=== PATIENT | male | born 1970 | race Caucasian/White ===

== ENCOUNTER 2016-08-11 17:47 | Emergency (ER) ==
[2016-08-11] MEDS ORDERED: ZOFRAN PO ONE (18:34)
[2016-08-11] MEDS ORDERED: NORCO-7.5 PO ONE (18:34)
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
[2016-08-11 19:30] VITALS: BP 131/81
[2016-08-11] MEDS ORDERED: NORFLEX IM ONE (19:40)
--- NOTE | 2016-08-12 08:21 | Diag Imaging Result Document ---
PROCEDURE NAME: CERVICAL SPINE W/O CONTRAST - 08/11/2016 CT CERVICAL SPINE: A CT dose reduction protocol was used. COMPARISON: None. FINDINGS: Alignment is anatomic. No fracture or subluxation. Vertebral body heights and intervertebral disk spaces are preserved. There is some moderate predominantly left-sided facet degeneration, worst at C4-C5. IMPRESSION: Mild degenerative changes. No acute injury. [facility]
--- NOTE | 2016-08-12 08:54 | Diag Imaging Result Document ---
PROCEDURE NAME: WRIST COMPLETE RIGHT - 08/11/2016 PLAIN RADIOGRAPH OF THE RIGHT WRIST, 3 VIEWS: COMPARISON: None available. FINDINGS: There is chronic well-corticated fragmentation of the ulnar styloid. There is no evidence of acute fracture, dislocation, or intrinsic osseous lesion. The joint spaces are preserved. Surrounding soft tissues are grossly unremarkable. IMPRESSION: No evidence of acute pathology.
--- NOTE | 2016-08-12 09:17 | Diag Imaging Result Document ---
PROCEDURE NAME: HAND COMPLETE RIGHT - 08/11/2016 RIGHT HAND, 3 VIEWS: FINDINGS: There is a separate ossicle for the ulnar styloid. There are a number of linear artifacts on the exam. There is no evidence of acute fracture or dislocation. IMPRESSION: No evidence of acute bony disease.
== END 2016-08-11 20:52 | disposition home or self-care (01) ==
LOC: ED 17:47
DX: S63.501A Unspecified sprain of right wrist, initial encounter (principal); M54.2 Cervicalgia; M47.812 Spondylosis without myelopathy or radiculopathy, cervical region; M79.641 Pain in right hand; M25.531 Pain in right wrist; M79.1 Myalgia; M43.6 Torticollis; V57.6XXA Passenger in pick-up truck or van injured in collision with fixed or stationary object in traffic accident, initial encounter
CPT/HCPCS: 72125; J2360